=== PATIENT | male | born 1955 | race Caucasian/White ===

== ENCOUNTER → 2018-08-16 | Outpatient (CLI) | payer BC ==
[~2018-08-16] MED LIST: REGADENOSON 0.4 MG/5 ML DISP.SYRIN. IV ONE
--- NOTE | 2018-08-16 12:45 | PCVCIMAG ---
APPROVED REPORT Imaging Protocol: Rest Tc-99m/Stress Tc-99m 1 day Study performed: 08/16/2018 08:43:17 Indication: CAD, Pre-Operative CV evaluation Patient Location: Out-Patient Stress Nurse: Alem Teixeira RN, Mary Hearn RN ND Tech:Philomena Mirelesfredy [facility] Ht: 6 ft 0 in Wt: 200 lbs BSA: 2.13 m2 HR: 77 bpm BP: 189/92 mmHg BMI: 27.12 Rhythm: Sinus Rhythm, RBBB Medical History Medical History: HTN, Hyperlipidemia Medications: ASA, Carvedilol, Repatha, Metformin Allergies: Tetanus, Zithromax Cardiac Risk Factors: Age Previous Cardiac Procedures: 2005 CABG, COLLIER - DIAG, LAD Pretest Chest Pain Characteristics: No chest pain Physical Disabilities: Knees Meds Held (24 hrs): Carvedilol Resting Data Rest SPECT myocardial perfusion imaging was performed in supine position 45 minutes following the intravenous injection of 10.3 mCi of Tc-99m Sestamibi. Time of rest injection: 809 Date: 08/16/2018 Administration Route: IV Administration Site: Right Arm Pharmacologic Stress Pharmacologic stress test was performed by injecting Regadenoson 0.4 mg IV push over 10-15 seconds immediately followed by the intravenous injection of 33.5 mCi of Tc-99m Sestamibi. Time of stress injection: 929 Date: 08/16/2018 Administration Route: IV Administration Site: Right Arm Gated Stress SPECT was performed 45 minutes after stress injection. The images were gated to evaluate regional wall motion and calculate left ventricular ejection fraction. Stress Test Details Stress Test: Pharmacologic stress was paired with low level exercise. Reason for pharmacologic stress test: knee issues. HRMax Heart Rate (APMHR): 159 bpm Resting HR: 77 bpmTarget HR (85% APMHR): 135 bpm Max HR Achieved: 106 bpm % of APMHR: 66 Recovery HR: 88 bpm BP Resting BP: 189/92 mmHg Max BP: 160/88 mmHg Recovery BP: 175/94 mmHg ECG Resting ECG: Sinus Rhythm, RBBB Stress ECG: Sinus Tachycardia, RBBB Recovery ECG: Sinus Rhythm, RBBB Clinical Reason for Termination: Completed protocol Stress Symptoms: Dyspnea, Leg Fatigue Exercise duration: 4 min 00 sec Exercise capacity: 1.6 METs Symptoms resolved with caffeine. Stress ECG Conclusion 1. Adequate response to intravenous Lexiscan 2. Inadequate for ECG diagnosis Study Data Post stress, the left ventricular ejection was 67%.. SSS: 0 SRS: 0 SDS: 0 TID = 0.79. Perfusion There is a large area of moderately reduced uptake in the entire segment of the inferior wall which is seen on the stress images as well as the resting images. This area thickens and moves normally and is most consistent with attenuation artifact. Wall Motion Normal left ventricular wall motion. Nuclear Conclusion ECG Findings: non-diagnostic Clinical Findings: negative for ischemia Nuclear Findings: negative for ischemia Exercise Capacity: not assessed Left Ventricular Function: normal 1. Low risk study <Conclusion> 1. Adequate response to intravenous Lexiscan 2. Inadequate for ECG diagnosis
== END | disposition home or self-care (01) ==
LOC: PCVCIMAG 07:52
PROVIDERS: ATTEND Internal Medicine
DX: Z01.810 Encounter for preprocedural cardiovascular examination (principal); I25.10 Atherosclerotic heart disease of native coronary artery without angina pectoris
CPT/HCPCS: 78452; 93017; A9500; J2785